=== PATIENT | male | born 1975 | race Caucasian/White ===

== ENCOUNTER 2025-04-14 17:14 | Emergency (ER) | payer SELFPAY ==
[2025-04-14 17:31] VITALS: BP 120/67; PULSE 95; RESP 14; TEMP 36.5; O2SAT 96; BMI 26.4
[2025-04-14] MEDS: orphenadrine 30 mg/mL Inj 2 mL 60 MG IM (18:05)
--- NOTE | 2025-04-14 18:08 | ED_ITS ---
HPI - Neck Pain/Injury General: Chief Complaint: Neck Pain/Injury Stated Complaint: Neck pain and numb Time Seen by Provider: 04/14/25 17:38 Source: patient Mode of arrival: ambulatory Limitations: no limitations History of Present Illness: Patient is a 49-year-old male who presents the emergency department complaining of cervical neck pain for the past 4 months. States that he was once referred to orthopedics but did not attend visit, as he has been treating at home with Motrin and Tylenol. He denies any recent trauma. Denies any dizziness, or headache. No visual changes. States his range of motion feels limited, primarily the pain is to the midline cervical spine. Pain is nonradiating. No numbness in the extremities. MD complaint: neck pain Onset (ago): month(s) Associated symptoms: Denies headache(s) or nausea Related Data Home Medications ?Medication ?Instructions ?Recorded ?Confirmed clopidogrel 75 mg tablet 75 mg PO DAILY 08/31/2408/12 lisinopril 10 mg tablet 10 mg PO DAILY 08/31/2408/12 Previous Rx's ?Medication ?Instructions ?Recorded amoxicillin 875 mg-potassium 1 tab PO BID 5 days #10 t abs 08/31/24 clavulanate 125 mg tablet atorvastatin 10 mg tablet (Lipitor) 10 mg PO DAILY 30 days #30 tabs 08/31/24 methocarbamol 750 mg tablet 750 mg PO Q8H 5 days #15 t abs 04/14/25 prednisone 20 mg tablet 60 mg (3 x 20 mg) PO ONCE 5 days 04/14/25 #15 tabs Allergies Allergy/AdvReac Type Severity Reaction Status Date / Time No Known Allergies Allergy Verified 04/14/25 17:36 Review of Systems General: Reports: 10 or more systems reviewed and unremarkable except in HPI and below Const: Denies: fever(s) or chills Card: Denies: chest pain Resp: Denies: dyspnea or productive cough GI: Denies: abdominal pain, nausea, vomiting or diarrhea : Denies: flank pain Musc: Reports: neck pain and limited range of motion; Denies: back pain, extremity pain, extremity swelling, joint pain, joint swelling, joint redness, joint warmth or muscle weakness Skin/Breast: Denies: rash Neuro: Denies: headache(s), numbness in extremities or weakness in extremities PFSH ED PFSH: Social History Smoking and tobacco/nicotine status: former use of tobacco/nicotine Physical Exam 2 Const: COMMON NORMALS: no acute distress, patient oriented x3, no limitations, healthy appearing, alert and well nourished HENMT: COMMON NORMALS: normocephalic and atraumatic HEAD & SCALP: normocephalic and atraumatic Neck/C-Spine: OTHER: Mild reproducible C-spine tenderness to palpation. Full range of motion, muscle spasming noted to the cervical region. No step-off deformity of the spine. Resp: COMMON NORMALS: normal respiratory effort, No use of accessory muscles and clear to auscultation bilaterally AUSCULTATION: clear to auscultation bilaterally Cardio: COMMON NORMALS: regular rate and regular rhythm RATE: regular rate RHYTHM: regular rhythm Extremity: COMMON NORMALS: normal to inspection, full ROM, capillary refill normal, no joint enlargement and no clubbing, cyanosis or edema Neuro: COMMON NORMALS: patient oriented x3, moves all extremities, no focal motor deficits and no sensory deficits noted SENSORIUM/ORIENTATION: Yes alert Skin: COMMON NORMALS: no rashes or lesions noted GENERAL SKIN EXAM: no rashes or lesions noted Course Vital Signs: Vital signs: Vital Signs Temperature 97.7 F 04/14/25 17:31 Pulse Rate 95 04/14/25 17:31 Respiratory Rate 14 04/14/25 17:31 Blood Pressure 120/67 04/14/25 17:31 Pulse Oximetry 96 04/14/25 17:31 Oxygen Delivery Me thod Room Air 04/14/25 17:31 MDM - Neck Pain/Injury Medical Decision Making Patient presenting with 4 months of neck pain, no specific worsening he states he just wants to know what is wrong. States that he had been referred to orthopedics in the past but did not attend this visit. There are no concerning findings on physical exam. Suspect chronic neck pain, could represent degenerative disc disease and ultimately he will be referred back to Ortho/spine, I do not feel imaging warranted at this time, we will also treat with muscle relaxer and steroids for home. He denied pain medications here in the ED. He knows to return with any new or worsening. No radiology studies performed this visit Discharge Plan Discharge Patient Disposition: Home Clinical Impression: Cervical radiculopathy Condition: Stable Prescriptions: New prednisone 20 mg tablet 60 mg PO ONCE 5 Days Qty: 15 0RF methocarbamol 750 mg tablet 750 mg PO Q8H 5 Days Qty: 15 0RF No Action lisinopril 10 mg tablet 10 mg PO DAILY clopidogrel 75 mg tablet 75 mg PO DAILY atorvastatin [Lipitor] 10 mg tablet 10 mg PO DAILY 30 Days Qty: 30 0RF amoxicillin-pot clavulanate 875-125 mg tablet 1 tab PO BID 5 Days Qty: 10 0RF Discharge Orders: Discharge ED (Routine); Ordered 04/14/25 Ordered By: Yann Lewis Referrals: Jamie Pardo MD [Primary Care Provider, Family Practice] Patient Instructions: Patient Portal & Michael Instructions Activity Restrictions/Additional Instructions: Please take the Robaxin and prednisone as prescribed. Follow-up with orthopedics/spine, await call to schedule this appointment. Take Motrin and Tylenol, please do not take more than 4g of Tylenol daily, and no more than 3200 mg of ibuprofen. Please return with any new or worsening. Print Language: [place] Coding Level of Care Code ED Heel Seat Laster for Dahiana Johnson
--- NOTE | 2025-04-15 08:02 | DCPLANNER ---
messaged ortho for er f/u
== END 2025-04-14 18:07 | disposition home or self-care (01) ==
PROVIDERS: Emergency Provider Physician Assistant; PCP Family Medicine
DX: M54.12 Radiculopathy, cervical region (principal); Z79.02 Long term (current) use of antithrombotics/antiplatelets; Z87.891 Personal history of nicotine dependence
CPT/HCPCS: 96372; 99284; J1100; J2360

== ENCOUNTER → 2025-04-23 08:28 | Outpatient (BNVA) | payer SELFPAY | PROVIDERS: PCP Family Medicine; Visit Provider Orthopaedic Surgery | DX: M54.2 Cervicalgia (principal) | CPT/HCPCS: 72050 ==